=== PATIENT | male | born 1985 | race Two or more races ===

== ENCOUNTER 2018-02-26 13:27 | Emergency (ER) | payer OTHER ==
[~2018-02-26] VITALS: Ht 172.7 cm; Wt 108.9 kg
[2018-02-26 13:45] VITALS: BP 124/90
--- NOTE | 2018-02-26 14:20 | RAD ---
Right ankle, 3 views, 02/26/2018: HISTORY: Ankle injury, pain and swelling No fracture or dislocation is identified. There is moderate soft tissue swelling laterally. IMPRESSION: No acute bony abnormality is detected. Electronically signed by: Villa Rowell MD (02/26/2018 2:16 PM) [facility]
[2018-02-26] MEDS ORDERED: IBUP800T19 PO (14:29)
[2018-02-26] MEDS ORDERED: TRAM-48 PO (14:29)
--- NOTE | 2018-02-26 14:29 | PHYS DOC ---
Past History Past Medical History: No Pertinent History Past Surgical History: No Surgical History Smoking: Cigarettes Alcohol Use: None Drug Use: None Adult General Chief Complaint Chief Complaint: ANKLE PROBLEM HPI HPI 32-year-old female patient states he twisted his right ankle last night and this morning Edema of lateral malleolus with painful walking without focal neuro deficit, fever and chills, other injuries. Patient rated his pain 7/10 that getting worse with walking. Review of Systems Review of Systems Constitutional: Denies fever or chills [] Eyes: Denies change in visual acuity, redness, or eye pain [] HENT: Denies nasal congestion or sore throat [] Respiratory: Denies cough or shortness of breath [] Cardiovascular: No additional information not addressed in HPI [] GI: Denies abdominal pain, nausea, vomiting, bloody stools or diarrhea [] : Denies dysuria or hematuria [] Musculoskeletal: Denies back pain, reports joint pain [] Integument: Denies rash or skin lesions [] Neurologic: Denies headache, focal weakness or sensory changes [] Endocrine: Denies polyuria or polydipsia [] All other systems were reviewed and found to be within normal limits, except as documented in this note. Allergies Allergies Allergies Coded Allergies Type Severity Reaction Last Updated Verified No Known Drug Allergies 02/26/18 No Physical Exam Physical Exam Constitutional: Well developed, well nourished, mild distress, non-toxic appearance. [] HENT: Normocephalic, atraumatic Eyes: PERRLA, EOMI, conjunctiva normal, no discharge. [] Neck: Normal range of motion, no tenderness, supple, no stridor. [] Cardiovascular:Heart rate regular rhythm, no murmur [] Lungs & Thorax: Bilateral breath sounds clear to auscultation [] Extremities: Right ankle with edema and tenderness without deformity, no neurovascular deficit Neurologic: Alert and oriented X 3, normal motor function, normal sensory function, no focal deficits noted. [] Psychologic: Affect normal, judgement normal, mood normal. [] Current Patient Data Vital Signs Vital Signs Date Time Temp Pulse Resp B/P (MAP) Pulse Ox O2 Delivery O2 Flow Rate FiO2 02/26/18 13:45 98.1 81 16 95 Room Air EKG EKG [] Radiology/Procedures Radiology/Procedures [][place] [id number] IMAGING REPORT Signed PATIENT: CAROLYN JOHN ACCOUNT: [id number] : 1985 LOCATION: ER AGE: 32 SEX: M EXAM STATUS: REG ER ORD. PHYSICIAN: BRANDYN AGARWAL MD REASON: ANKLE PAIN PROCEDURE: ANKLE RIGHT 3V Right ankle, 3 views, 02/26/2018: HISTORY: Ankle injury, pain and swelling No fracture or dislocation is identified. There is moderate soft tissue swelling laterally. IMPRESSION: No acute bony abnormality is detected. Electronically signed by: Villa Rowell MD (02/26/2018 2:16 PM) [facility] DICTATED AND SIGNED BY: VILLA ROWELL MD DATE: 02/26/18 1416 CC: BRANDYN AGARWAL MD; PCP,NO ~ Course & Med Decision Making Course & Med Decision Making Pertinent Imaging studies reviewed. (See chart for details) Evaluation of patient in ER showed 32-year-old female patient with injury to right ankle without fracture. Patient had a air cast splint instructed to apply ice and elevate his leg. [] Dragon Disclaimer Dragon Disclaimer This electronic medical record was generated, in whole or in part, using a voice recognition dictation system. Departure Departure: Impression: Primary Impression: Right ankle sprain Additional Impressions: Tobacco abuse Tobacco abuse counseling Disposition: HOME, SELF-CARE (At 1425) Condition: STABLE Referrals: PCP,NO (PCP) DESTINI ROSS MD Patient Instructions: Ankle Sprain, Smoking Cessation, Tips For Success Additional Instructions: Apply ice on the affected area Follow-up with director of home economics orthopedic physician if not getting better in 5 to 7 days Scripts Tramadol Hcl (ULTRAM) 50 Mg Tablet 50 MG PO PRN Q6HRS PRN for PAIN, #14 TAB Prov: BRANDYN AGARWAL MD 02/26/18 Ibuprofen (IBUPROFEN) 800 Mg Tablet 1 TAB PO TID, #30 TAB Prov: BRANDYN AGARWAL MD 02/26/18 Problem Qualifiers BRANDYN AGARWAL MD Feb 26, 2018 14:29
== END 2018-02-26 14:38 | disposition home or self-care (01) ==
LOC: ER 13:27
DX: S93.401A Sprain of unspecified ligament of right ankle, initial encounter (principal); F17.210 Nicotine dependence, cigarettes, uncomplicated; Z71.6 Tobacco abuse counseling; X50.1XXA Overexertion from prolonged static or awkward postures, initial encounter; Y93.89 Activity, other specified; Y99.8 Other external cause status; Y92.89 Other specified places as the place of occurrence of the external cause
CPT/HCPCS: 73610; 99284; L4350

== ENCOUNTER 2020-12-03 18:26 | Emergency (ER) | payer OTHER ==
[~2020-12-03] VITALS: Ht 172.7 cm; Wt 100.0 kg
[2020-12-03 18:26] VITALS: BP 119/79
[~2020-12-03 18:26] MED LIST: IBUP800T19 PO; TRAM-48 PO
[2020-12-03] MEDS ORDERED: IBUPROFEN 600 MG TABLET. PO ONE (18:45)
--- NOTE | 2020-12-03 18:53 | PHYS DOC ---
Past History Past Medical History: No Pertinent History Past Surgical History: No Surgical History Smoking: Cigarettes Alcohol Use: None Drug Use: None Adult General Chief Complaint Chief Complaint: KNEE INJURY HPI HPI Patient is a 35-year-old male who presents with left knee pain. States he was stepping over a trailer hitch about an hour before coming in, and felt like he twisted his knee. States that he has pain in the inside portion of his knee, 6 out of 10, dull and achy in nature. States he is able to walk it just causes discomfort. Denies any other injuries Review of Systems Review of Systems Review of systems otherwise unremarkable except noted in HPI Allergies Allergies Allergies Coded Allergies Type Severity Reaction Last Updated Verified No Known Drug Allergies 02/26/18 No Physical Exam Physical Exam Constitutional: Well developed, well nourished, no acute distress, non-toxic appearance. [] Skin: Warm, dry, no erythema, no rash. [] Back: No tenderness Extremities: Tenderness on the medial side of the left knee with no obvious bruising, deformities and probable small effusion, able to ambulate Neurologic: Alert and oriented X 3, normal motor function, normal sensory function, no focal deficits noted. [] Psychologic: Affect normal, judgement normal, mood normal. [] EKG EKG [] Radiology/Procedures Radiology/Procedures [] Three-view left knee dated 12/03/2020. No comparison available. Clinical data indication: Pain. FINDINGS: 3 views left knee show normal bony alignment. No displaced fracture. No apparent joint effusion or loose body. No acute osseous or articular abnormality. IMPRESSION: No acute findings. Electronically signed by: Tanmay Magallanes MD (12/03/2020 7:21 PM) [facility] Heart Score C/O Chest Pain: No Risk Factors: Risk Factors: DM, Current or recent (<one month) smoker, HTN, HLP, family history of CAD, obesity. Risk Scores: Risk Factors: DM, Current or recent (<one month) smoker, HTN, HLP, family history of CAD, obesity. Course & Med Decision Making Course & Med Decision Making Patient is a 35-year-old male who presents with left knee pain Vital signs not concerning. Physical exam noted above. Given ice pack and ibuprofen. [] Dragon Disclaimer Dragon Disclaimer This electronic medical record was generated, in whole or in part, using a voice recognition dictation system. Departure Departure: Impression: Primary Impression: Knee pain Disposition: 01 DC HOME SELF CARE/HOMELESS Condition: GOOD Referrals: MOODY PAYAN MD (PCP) Patient Instructions: Knee Pain, Knee Pain, [id number], RICE - Routine Care for Injuries, [id number] Additional Instructions: Please read all the attached information. Please keep your knee immobilizer on as much as possible. Please use your crutches as needed as discussed. You can use Tylenol, ibuprofen and ice as needed. Please follow-up with your primary care physician first thing tomorrow to discuss your ED visit and set up a follow-up appointment to discuss further treatment needs and need for orthopedic surgery consultation. SCOTTY WANG MD Dec 03, 2020 18:53
--- NOTE | 2020-12-03 19:23 | RAD ---
Three-view left knee dated 12/03/2020. No comparison available. Clinical data indication: Pain. FINDINGS: 3 views left knee show normal bony alignment. No displaced fracture. No apparent joint effusion or lo ose body. No acute osseous or articular abnormality. IMPRESSION: No acute findings. Electronically signed by: Tanmay Magallanes MD (12/03/2020 7:21 PM) [facility]
== END 2020-12-03 19:45 | disposition home or self-care (01) ==
LOC: ER 18:26
DX: M25.562 Pain in left knee (principal); F17.210 Nicotine dependence, cigarettes, uncomplicated; X50.9XXA Other and unspecified overexertion or strenuous movements or postures, initial encounter; Y93.89 Activity, other specified; Y92.89 Other specified places as the place of occurrence of the external cause; Y99.8 Other external cause status
CPT/HCPCS: 29505; 73562; 99283

== ENCOUNTER 2021-09-16 19:09 | Emergency (ER) | payer OTHER ==
[~2021-09-16] VITALS: Ht 172.7 cm; Wt 106.8 kg
[2021-09-16] MEDS ORDERED: ASPIRIN CHEWABLE 81 MG TABLET. PO ONE (19:45)
[2021-09-16] MEDS ORDERED: IV RINGERS SOLUTION,LACTATED 1,000 ML IV SCH (19:45)
[2021-09-16 20:14] LABS: BASO % 0 % (0-3); EOS # 0.1 x10^3/uL (0.0-0.7); EOS % 1 % (0-3); HEMATOCRIT 40.1 % (39.0-53.0); HEMOGLOBIN 13.9 g/dL (13.0-17.5); LYMPH # 1.8 x10^3/uL (1.0-4.8); LYMPH % 19 % (24-48); MEAN CORPUSCULAR HEMOGLOBIN 31 pg (25-35); MEAN CORPUSCULAR HGB CONC 35 g/dL (31-37); MEAN CORPUSCULAR VOLUME 90 fL (79-100); MONO # 0.8 x10^3/uL (0.0-1.1); MONO % 8 % (0-9); NEUT # 6.7 x10^3uL (1.8-7.7); NEUT % 71 % (31-73); PLATELET COUNT 287 x10^3/uL (140-400); RED BLOOD COUNT 4.48 x10^6/uL (4.30-5.70); RED CELL DISTRIBUTION WIDTH 12.5 % (11.5-14.5); WHITE BLOOD COUNT 9.4 x10^3/uL (4.0-11.0)
[2021-09-16 20:20] LABS: CALCIUM 8.2 mg/dL (8.5-10.1); CREATININE 0.9 mg/dL (0.7-1.3); POTASSIUM 3.9 mmol/L (3.5-5.1)
--- NOTE | 2021-09-16 20:20 | RAD ---
XR CHEST 1V 09/16/2021 7:41 PM INDICATION: Chest pain COMPARISON: None available TECHNIQUE: Portable frontal view of the chest is provided. FINDINGS: The cardiomediastinal silhouette is within normal limits. Subtle patchy opacities are identified in t he peripheral left upper lobe and right lower lobe. There are no significant pleural effusions. There is no pulmonary vascular congestion. No pneumothora x. No suspicious osseous abnormality. IMPRESSION: Subtle patchy opacities identified within the left upper lobe and right lower lobe as may be seen wit h pneumonitis of infectious/inflammatory etiology. Short-term follow-up two-view chest radiograph cou ld be of benefit. Electronically signed by: Nahomi Blanco MD (09/16/2021 8:17 PM) [facility]
[2021-09-16 20:33] LABS: ALBUMIN 3.8 g/dL (3.4-5.0); DIRECT BILIRUBIN 0.2 mg/dL (0.0-0.2); MAGNESIUM 2.1 mg/dL (1.8-2.4); TOTAL BILIRUBIN 0.6 mg/dL (0.2-1.0); TOTAL PROTEIN 7.4 g/dL (6.4-8.2)
[2021-09-16 21:13] LABS: INFLUENZA A PATIENT NEGATIVE (NEGATIVE); INFLUENZA B PATIENT NEGATIVE (NEGATIVE)
[2021-09-16] MEDS ORDERED: IOHEXOL 350 MG/ML 100 ML VIAL. IV ONE (21:45)
--- NOTE | 2021-09-16 21:53 | PHYS DOC ---
Past History Past Medical History: No Pertinent History Past Surgical History: No Surgical History Smoking: Cigarettes Alcohol Use: Occasionally Drug Use: None General Adult EDM: Chief Complaint: CHEST PAIN HPI: HPI: ".. I having this Lt calf pain.. .. the last couple day.. I woke up with... it.. " Patient is a 35 year old male who presents with above hx and complaints of Lt calf pain and edema. Patient denies any specific history of trauma.. 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 Patient did have a course of COVID infection in August. Did not get COVID vaccination or flu vaccination. Patient has had some shortness of breath since his COVID infection.. Patient does have some pleuritic pain with deep breath and cough bilaterally. Patient does chew tobacco. Patient normally follows with Dr. Payan. Normally healthy. No personal or family history of coagulopathy. Review of Systems: Review of Systems: Constitutional: Denies fever or chills Eyes: Denies change in visual acuity HENT: Denies nasal congestion or sore throat Respiratory: Complains of some shortness of breath Cardiovascular: Complains of some chest wall pain with deep breath and cough GI: Denies abdominal pain, nausea, vomiting, bloody stools or diarrhea : Denies dysuria Musculoskeletal: Complains of left calf pain Integument: Denies rash Neurologic: Denies headache, focal weakness or sensory changes Endocrine: Denies polyuria or polydipsia Lymphatic: Denies swollen glands Psychiatric: Denies depression or anxiety Current Medications: Current Meds: Current Medications Medications (Trade) Dose Ordered Sig/Paul Start Time Stop Time Status Last Admin Dose Admin Aspirin (Aspirin Chewable) 324 mg 1X ONCE 09/16/21 19:45 09/16/21 19:46 DC 09/16/21 20:06 324 MG Iohexol (Omnipaque 350 Mg/ml) 100 ml 1X ONCE 09/16/21 21:45 09/16/21 21:46 Lactated Ringer's 1,000 ml @ 100 mls/hr Q10H 09/16/21 19:45 09/17/21 05:44 09/16/21 20:07 100 MLS/HR Allergies: Allergies: Allergies Coded Allergies Type Severity Reaction Last Updated Verified No Known Drug Allergies 02/26/18 No Physical Exam: PE: Constitutional: Well developed, well nourished, moderate acute distress, non- toxic appearance. [] HENT: Normocephalic, atraumatic, bilateral external ears canals normal, oropharynx moist, no oral exudates, nose normal. Bilateral earlobe disc Eyes: PERRLA, EOMI, conjunctiva normal, no discharge. [] Neck: Normal range of motion, no tenderness, supple, no stridor. [] Cardiovascular: Tachycardia heart rate regular rhythm, no murmur [] Lungs & Thorax: Bilateral breath sounds equal apex with scattered wheezes and some basilar crackles on auscultation [] Abdomen: Bowel sounds normal, soft, no tenderness, no masses, no pulsatile masses. [] Skin: Warm, dry, no erythema, no rash. Tattoos Back: No tenderness, no CVA tenderness. [] Extremities: No tenderness, no cyanosis, no clubbing, ROM intact, no edema. Except the findings in the left calf swelling, tenderness, cording, and edema. Neurologic: Alert and oriented X 3, normal motor function, normal sensory function, no focal deficits noted. [] Psychologic: Affect anxious, judgement normal, mood normal. [] Current Patient Data: Labs: Laboratory Tests Test 09/16/21 19:30 09/16/21 19:50 White Blood Count 9.4 x10^3/uL (4.0-11.0) Red Blood Count 4.48 x10^6/uL (4.30-5.70) Hemoglobin 13.9 g/dL (13.0-17.5) Hematocrit 40.1 % (39.0-53.0) Mean Corpuscular Volume 90 fL (79-100) Mean Corpuscular Hemoglobin 31 pg (25-35) Mean Corpuscular Hemoglobin Concent 35 g/dL (31-37) Red Cell Distribution Width 12.5 % (11.5-14.5) Platelet Count 287 x10^3/uL (140-400) Neutrophils (%) (Auto) 71 % (31-73) Lymphocytes (%) (Auto) 19 % (24-48) L Monocytes (%) (Auto) 8 % (0-9) Eosinophils (%) (Auto) 1 % (0-3) Basophils (%) (Auto) 0 % (0-3) Neutrophils # (Auto) 6.7 x10^3uL (1.8-7.7) Lymphocytes # (Auto) 1.8 x10^3/uL (1.0-4.8) Monocytes # (Auto) 0.8 x10^3/uL (0.0-1.1) Eosinophils # (Auto) 0.1 x10^3/uL (0.0-0.7) Basophils # (Auto) 0.0 x10^3/uL (0.0-0.2) Prothrombin Time 11.1 SEC (9.4-11.4) Prothrombin Time INR 1.1 (0.9-1.1) Activated Partial Thromboplast Time 23 SEC (23-33) D-Dimer (Mesha) 10.01 mg/L (0.00-0.50) H Sodium Level 139 mmol/L (136-145) Potassium Level 3.9 mmol/L (3.5-5.1) Chloride Level 103 mmol/L (98-107) Carbon Dioxide Level 25 mmol/L (21-32) Anion Gap 11 (6-14) Blood Urea Nitrogen 16 mg/dL (8-26) Creatinine 0.9 mg/dL (0.7-1.3) Estimated GFR (Cockcroft-Gault) 95.0 Glucose Level 114 mg/dL (70-99) H Calcium Level 8.2 mg/dL (8.5-10.1) L Magnesium Level 2.1 mg/dL (1.8-2.4) Total Bilirubin 0.6 mg/dL (0.2-1.0) Direct Bilirubin 0.2 mg/dL (0.0-0.2) Aspartate Amino Transferase (AST) 18 U/L (15-37) Alanine Aminotransferase (ALT) 34 U/L (16-63) Alkaline Phosphatase 48 U/L (46-116) Creatine Kinase 105 U/L (39-308) Troponin I High Sensitivity 5 ng/L (4-75) LX-Rdd-G-Type Natriuretic Peptide 26 pg/mL (0-124) Total Protein 7.4 g/dL (6.4-8.2) Albumin 3.8 g/dL (3.4-5.0) Lipase 86 U/L (73-393) Influenza Type A (Rapid) Negative (NEGATIVE) Influenza Type B (Rapid) Negative (NEGATIVE) SARS-CoV-2 Antigen (Rapid) Negative (NEGATIVE) Vital Signs: Vital Signs Date Time Temp Pulse Resp B/P (MAP) Pulse Ox O2 Delivery O2 Flow Rate FiO2 09/16/21 19:22 99.9 89 18 130/70 (90) 97 Room Air EKG: EKG: My interpretation EKG shows a sinus rhythm at 80 bpm. No acute morphology. Time of EKG is 1932 hrs. [] Radiology/Procedures: Radiology/Procedures: [[address] [address] IMAGING REPORT Signed PATIENT: CAROLYN JOHN AACCOUNT: [id number] : 1985 LOCATION: ER AGE: 35 SEX: M EXAM STATUS: REG ER ORD. PHYSICIAN: DELPHINE SALDIVAR MD REASON: OMNI 350,100ML IV.CP,Elevated D-dimer,dyspnea.Hx COVID Aug 2021 PROCEDURE: CT ANGIOGRAPHY CHEST CT arteriogram of the chest. HISTORY: Dyspnea, history of Covid August 2021, elevated d-dimer CT arteriogram of the chest was done using 100 mL Omnipaque 350 contrast. Sagittal and coronal reconstructed images were reviewed. There is no mediastinal adenopathy or pleural effusion. Visualized portions the liver and spleen are unremarkable. Adrenal glands are normal. There are bilateral areas of infiltrate consistent with mild Covid pneumonia. There is a nodule along the major major fissure on the left suggesting an intrafissural nodule measuring 6 x 9 mm. There is mild hilar adenopathy. There is a small pulmonary embolus in the lateral segment of the right upper lobe. There is a small pulmonary embolus in 2 lateral segment segments of the left lower lobe. IMPRESSION: 1. Mild bilateral areas of infiltrate. 2. Small pulmonary emboli. PQRS Compliance Statement: One or more of the following individualized dose reduction techniques were utilized for this examination: 1. Automated exposure control 2. Adjustment of the mA and/or kV according to patient size 3. Use of iterative reconstruction technique Electronically signed by: Kiko Ventura MD (09/16/2021 10:19 PM) [facility] [place] DICTATED AND SIGNED BY: KIKO VENTURA MD DATE: 09/16/21 4303 CC: DELPHINE SALDIVAR MD; MOODY PAYAN MD ~MTH0 0 ][place] [address] IMAGING REPORT Signed PATIENT: CAROLYN JOHN AACCOUNT: [id number] : 1985 LOCATION: ER AGE: 35 SEX: M EXAM STATUS: PRE ER ORD. PHYSICIAN: DELPHINE SALDIVAR MD REASON: cp PROCEDURE: PORTABLE CHEST 1V XR CHEST 1V 09/16/2021 7:41 PM INDICATION: Chest pain COMPARISON: None available TECHNIQUE: Portable frontal view of the chest is provided. FINDINGS: The cardiomediastinal silhouette is within normal limits. Subtle patchy opacities are identified in the peripheral left upper lobe and right lower lobe. There are no significant pleural effusions. There is no pulmonary vascular congestion. No pneumothorax. No suspicious osseous abnormality. IMPRESSION: Subtle patchy opacities identified within the left upper lobe and right lower lobe as may be seen with pneumonitis of infectious/inflammatory etiology. Short- term follow-up two-view chest radiograph could be of benefit. Electronically signed by: Genia Parker MD (09/16/2021 8:17 PM) [facility] DICTATED AND SIGNED BY: GENIA PARKER MD DATE: 09/16/212015 CC: DELPHINE SALDIVAR MD; MOODY PAYAN MD ~MTH0 0 Heart Score: C/O Chest Pain: Yes HEART Score for Chest Pain: HEART Score for Chest Pain Response (Comments) Value History Slighlty/Non-Suspicious 0 ECG Normal 0 Age < 45 0 Risk Factors 1 or 2 Risk Factors 1 Troponin < Normal Limit 0 Total 1 Risk Factors: Risk Factors: DM, Current or recent (<one month) smoker, HTN, HLP, family history of CAD, obesity. Risk Scores: Score 0 - 3: 2.5% MACE over next 6 weeks - Discharge Home Score 4 - 6: 20.3% MACE over next 6 weeks - Admit for Clinical Observation Score 7 - 10: 72.7% MACE over next 6 weeks - Early Invasive Strategies Course & Med Decision Making: Course & Med Decision Making Pertinent Labs and Imaging studies reviewed. (See chart for details) Patient take Tylenol ibuprofen for left calf pain. Warm compresses. If concerned that this is DVT follow-up outpatient ultrasound, however will be covered with Eliquis for this since he was found to have bilateral pulmonary embolisms. Patient take Zithromax 250 a day for 5 days. Cover atypical pneumonia also found on CT. Patient encouraged to stop chewing tobacco. Patient encouraged to follow-up with primary care. Patient to take Eliquis 10 mg twice a day for 7 days. Patient did not take Eliquis 5 mg twice a day for 30 days. By that time he will be following up with primary care. Impression: 1. History of COVID infection in August 2. Bilateral pulmonary embolisms 3. Bilateral areas of infiltrate atypical pneumonia 4. Tobacco use 5. Suspect left calf DVT Dragon Disclaimer: Dragon Disclaimer: This electronic medical record was generated, in whole or in part, using a voice recognition dictation system. Departure Departure: Referrals: MOODY PAYAN MD (PCP) Scripts Apixaban (ELIQUIS) 5 Mg Tablet 5 MG PO BID for pe, dvt for 30 Days, #60 TAB Prov: DELPHINE SALDIVAR MD 09/16/21 Apixaban (ELIQUIS) 5 Mg Tablet 10 MG PO BID for DVT, PE for 7 Days, #28 TAB Prov: DELPHINE SALDIVAR MD 09/16/21 Azithromycin (ZITHROMAX) 250 Mg Tablet 250 MG PO DAILY for ANTI-BIOTIC for 5 Days, #5 TAB 0 Refills Prov: DELPHINE SALDIVAR MD 09/16/21 Dragon Disclaimer This chart was dictated in whole or in part using Voice Recognition software in a busy, high-work load, and often noisy Emergency Department environment. It may contain unintended and wholly unrecognized errors or omissions. Dragon Disclaimer This chart was dictated in whole or in part using Voice Recognition software in a busy, high-work load, and often noisy Emergency Department environment. It may contain unintended and wholly unrecognized errors or omissions. DELPHINE SALDIVAR MD Sep 16, 2021 21:52
[2021-09-16 22:16] VITALS: BP 125/69
--- NOTE | 2021-09-16 22:21 | RAD ---
CT arteriogram of the chest. HISTORY: Dyspnea, history of Covid August 2021, elevated d-dimer CT arteriogram of the chest was done using 100 mL Omnipaque 350 contrast. Sagittal and coronal recons tructed images were reviewed. There is no mediastinal adenopathy or pleural effusion. Visualized port ions the liver and spleen are unremarkable. Adrenal glands are normal. There are bilateral areas of i nfiltrate consistent with mild Covid pneumonia. There is a nodule along the major major fissure on th e left suggesting an intrafissural nodule measuring 6 x 9 mm. There is mild hilar adenopathy. There i s a small pulmonary embolus in the lateral segment of the right upper lobe. There is a small pulmonar y embolus in 2 lateral segment segments of the left lower lobe. IMPRESSION: 1. Mild bilateral areas of infiltrate. 2. Small pulmonary emboli. PQRS Compliance Statement: One or more of the following individualized dose reduction techniques were utilized for this examinat ion: 1. Automated exposure control 2. Adjustment of the mA and/or kV according to patient size 3. Use of iterative reconstruction technique Electronically signed by: Kiko Ventura MD (09/16/2021 10:19 PM) [facility]
[2021-09-16] MEDS ORDERED: AZITHROMYCIN 250 MG TABLET. PO ONE (22:30)
[2021-09-16] MEDS ORDERED: APIX5TAB3 PO (22:33)
[2021-09-16] MEDS ORDERED: AZIT250T PO (22:33)
[2021-09-16] MEDS ORDERED: APIXABAN 5 MG TABLET. ONE (22:36)
[2021-09-16] MEDS: APIXABAN 5 MG TABLET. PO SCH ×2 (22:40→22:41)
--- NOTE | 2021-09-17 04:11 | EKG ---
[address] [address] Test Date: 2021-09-16 Test Time: 19:32:35 Pat Name: CAROLYN JOHN Department: Room: Gender: M Insurance Coder: : [id number] Requested By: DELPHINE SALDIVAR Order Number: [id number] Reading MD: Berto Hinson Measurements Intervals Winter Rate: 80 P: 33 AK: 158 QRS: 16 QRSD: 96 T: 15 QT: 354 QTc: 412 Interpretive Statements SINUS RHYTHM Electronically Signed On 09-18-2021 15:57:08 [employer] by Berto Hinson
== END 2021-09-16 22:50 | disposition home or self-care (01) ==
LOC: ER 19:09
DX: J18.9 Pneumonia, unspecified organism (principal); I26.99 Other pulmonary embolism without acute cor pulmonale; F17.210 Nicotine dependence, cigarettes, uncomplicated; Z86.16 Personal history of COVID-19; Z20.822 Contact with and (suspected) exposure to COVID-19
CPT/HCPCS: 36415; 71045; 71275; 80048; 80076; 82550; 83690; 83735; 83880; 84443; 84484; 85025; 85379; 85610; 85730; 87428; 93005; 96360; 96361; 99285; J7120; Q9967